=== PATIENT | female | born 1985 | race Caucasian/White ===

== ENCOUNTER 2022-12-09 10:31 | Emergency (ER) | payer OTHER ==
--- NOTE | 2022-12-09 10:33 | ERPHSYRPT ---
- History of Present Illness Time Seen by Provider: 12/09/22 10:33 Source: patient Exam Limitations: no limitations Physician History: This is a 36-year-old right-handed white female patient who takes no medications chronically and has no known drug allergies and presents with a left ring finger injury that occurred prior to arrival. Patient caught the left ring finger in the garage door when she attempted to open and close manually. Patient has full function and sensation in the left ring finger however, there is a laceration present. She has wedding rings present on that finger and prefers to attempt to keep them intact. Patient's last tetanus injection is unknown. Occurred: just prior to arrival Method of Injury: direct blow Quality: constant, aching Severity of Pain-Max: moderate Severity of Pain-Current: moderate Extremities Pain Location: 4th finger: left Modifying Factors: Improves With: movement Associated Symptoms: none Allergies/Adverse Reactions: No Known Drug Allergies Allergy (Unverified 12/09/22 10:34) Travel Risk - International Travel Have you traveled outside of the country in past 3 weeks: No - Coronavirus Screening Are you exhibiting any of the following symptoms?: No Close contact with a COVID-19 positive Pt in past 14-21 Days: No - Review of Systems Constitutional: No Symptoms Eyes: No Symptoms Ears, Nose, & Throat: No Symptoms Respiratory: No Symptoms Cardiac: No Symptoms Abdominal/Gastrointestinal: No Symptoms Genitourinary Symptoms: No Symptoms Musculoskeletal: Injury (Left ring finger) Skin: Other Psychological: No Symptoms Endocrine: No Symptoms Hematologic/Lymphatic: No Symptoms Immunological/Allergic: No Symptoms All Other Systems: Reviewed and Negative - Past Medical History Pertinent Past Medical History: No - Nursing Vital Signs Nursing Vital Signs: Initial Vital Signs Temperature 97.0 F 12/09/22 10:42 Pulse Rate 50 L 12/09/22 10:42 Respiratory Rate 18 12/09/22 10:42 Blood Pressure 89/43 12/09/22 10:42 O2 Sat by Pulse Oximetry 100 12/09/22 10:42 Pain Scale Pain Intensity 0 - Physical Exam General Appearance: no apparent distress, alert, anxiety Eyes, Ears, Nose, Throat Exam: normal ENT inspection, moist mucous membranes Neck Exam: normal inspection, non-tender, supple, full range of motion Cardiovascular/Respiratory Exam: chest non-tender, no respiratory distress Abdominal Exam: non-tender Back Exam: normal inspection, normal range of motion, No CVA tenderness, No vertebral tenderness Shoulder Exam: normal inspection, non-tender, no evidence of injury, normal ROM Elbow/Forearm Exam: normal inspection, non-tender, no evidence of injury, normal ROM Wrist Exam: normal inspection, non-tender, no evidence of injury, normal ROM Hand Exam: laceration (Approximately 2-1/2 cm jagged laceration that is superficial left ring finger without active bleeding. No evidence of tendon injury. Patient has full sensation and full motor function.), soft tissue tenderness (Left ring finger) Neuro/Tendon Exam: normal sensation, normal motor functions, normal tendon functions, responds to pain, no evidence tendon injury Mental Status Exam: alert, oriented x 3, cooperative Skin Exam: laceration (Left ring finger) SpO2 Interpretation: normal Procedures - Laceration/Wound Repair Left Proximal Finger Time of Procedure: 10:40 Wound Location: Left, hand (Fourth digit) Wound Length (cm): 2.5 Wound's Depth, Shape: superficial, irregular, into subcut Wound Explored: clean (The wound was explored and bloodless field to the base and it was clean without evidence of foreign body.) Irrigated: Yes Hibiclens Prep: Yes Anesthesia: 1% Lidocaine Volume Anesthetic (ccs): 5 Wound Repaired With: sutures Suture Size/Type: 4-0 Number of Sutures: 5 Layer Closure?: No Sterile Dressing Applied?: Yes Splint Applied?: Yes Type of Splint Applied: Finger Sling Applied?: No Progress: 12/09/22 11:27 Additionally, the area was irrigated with a mixture of saline solution and Hibiclens. We then painted the left fourth digit with Betadine swabs and injected the 1% lidocaine to provide anesthesia and the dermal and subcutaneous spaces of the left fourth digit. We then removed her 3 rings intact. - Course Nursing assessment & vital signs reviewed: Yes Ordered Tests: Medication Summary Discontinued Medications Generic Name Dose Route Start Last Admin Trade Name Freq PRN Reason Stop Dose Admin Bacitracin Zinc 0.9 each 12/09/22 11:02 Bacitracin Packet 1 Each Pckt TP 12/09/22 11:03 STAT ONE Bacitracin Zinc Confirm 12/09/22 11:15 Bacitracin Packet 1 Each Pckt Administered 12/09/22 11:16 Dose 1 each .ROUTE .STK-MED ONE Diphtheria/Tetanus/Acell Pertussis 0.5 ml 12/09/22 11:01 Tdap --Diph,Pertuss(Acell),Tet Vac/Pf 0.5 Ml Vial IM 12/09/22 11:02 .ONCE ONE Diphtheria/Tetanus/Acell Pertussis Confirm 12/09/22 11:15 Tdap --Diph,Pertuss(Acell),Tet Vac/Pf 0.5 Ml Vial Administered 12/09/22 11:16 Dose 0.5 ml IM .STK-MED ONE Lidocaine HCl Confirm 12/09/22 10:38 Lidocaine Hcl 1% 20 Ml Mdv 20 Ml Ml Administered 12/09/22 10:39 Dose 10 ml .ROUTE .STK-MED ONE - Progress Progress: improved, re-examined Progress Note: 12/09/22 11:28 This patient's medical issue is 1 of low to moderate complexity. Level complexity in the work-up performed based on review of the patient's past medical history, review the patient's medication list, review the patient's drug allergy list, history of present illness and physical finds on examination. No laboratory data or radiographic studies are necessary. Counseled pt/family regarding: diagnosis, need for follow-up Medical Desision Making - Independent Historian Additional History obtained from: Spouse - Diagnostic Testing Diagnostic test were ordered, analyzed, and reviewed by me: No - Risk of complications The pt has a mod risk of morbidity or mortality based on: Need for prescription drug management - Departure Departure Disposition: Home Clinical Impression: Laceration of left ring finger w/o foreign body w/o damage to nail Condition: Stable Critical Care Time: No Referrals: Provider,Unknown [Primary Care Provider] - Follow up/PCP as directed Additional Instructions: Keep current bandage in place until the evening of 12/10/2022. At that time may remove the dressing and let the soapy water run along the suture repair line. Do not put on your rings until you are approximately 2 weeks out of suture removal date. Take your antibiotics and pain medicine as prescribed. Suture removal in approximately 8 to 10 days. Prescriptions: Hydrocodone/APAP 5/325 [[place] 5/325 mg] 1 each PO Q8H PRN PRN #6 tablet MDD 3 PRN Reason: Pain Cephalexin Mh 500 mg [Keflex 500 mg] 500 mg PO TID #21 cap
[2022-12-09] MEDS ORDERED: XYLOCAINE 1% HCL 20 ML MDV ONE (10:38)
[2022-12-09 10:43] VITALS: TEMP 97
[2022-12-09] MEDS ORDERED: Adacel Vial IM ONE ×2 (11:01→11:15)
[2022-12-09] MEDS ORDERED: BACIGUENT PACKET TP ONE (11:02)
[2022-12-09] MEDS ORDERED: BACIGUENT PACKET ONE (11:15)
[2022-12-09 11:54] VITALS: BP 110/65; PULSE 56; RESP 17; O2SAT 98
== END 2022-12-09 11:53 | disposition home or self-care (01) ==
LOC: ED 10:31
DX: S61.215A Laceration without foreign body of left ring finger without damage to nail, initial encounter (principal); W23.2XXA Caught, crushed, jammed or pinched between a moving and stationary object, initial encounter; Y92.007 Garden or yard of unspecified non-institutional (private) residence as the place of occurrence of the external cause; Z79.891 Long term (current) use of opiate analgesic; Z23 Encounter for immunization
CPT/HCPCS: 12001; 90471; 90715; 99283; A9270-GY